=== PATIENT | female | born 1960 | race Caucasian/White ===

== ENCOUNTER 2020-06-19 17:57 | Outpatient (CLI) | payer OTHER ==
[2020-03-14 21:16] VITALS: BMI 27.5
[~2020-06-19 17:57] MED LIST: ALBUTEROL SULF8.5 GM INH; DEXAMETHASONE2 MG PO; LEVAQUIN750 MG PO; ZPAK PO
== END 2020-06-19 23:59 | disposition home or self-care (01) ==
LOC: D.MAMMO 17:57
PROVIDERS: ATTEND Family Medicine
DX: N63.21 Unspecified lump in the left breast, upper outer quadrant (principal); N63.24 Unspecified lump in the left breast, lower inner quadrant

== ENCOUNTER → 2020-07-01 15:39 | Outpatient (CLI) | payer OTHER ==
[2020-03-14 21:16] VITALS: BMI 27.5
== END | disposition home or self-care (01) ==
LOC: D.LAB 15:39 → D.US 16:00
PROVIDERS: ATTEND Family Medicine
DX: R92.8 Other abnormal and inconclusive findings on diagnostic imaging of breast (principal)

== ENCOUNTER → 2020-07-08 13:07 | Outpatient (CLI) | payer OTHER ==
[2020-03-14 21:16] VITALS: BMI 27.5
== END | disposition home or self-care (01) ==
LOC: D.US 13:00
PROVIDERS: ATTEND Family Medicine
DX: R92.8 Other abnormal and inconclusive findings on diagnostic imaging of breast (principal)

== ENCOUNTER → 2020-08-01 20:10 | Outpatient (CLI) | payer OTHER ==
[2020-03-14 21:16] VITALS: BMI 27.5
== END | disposition home or self-care (01) ==
LOC: D.MAMMO 08:00
PROVIDERS: ATTEND Surgery
DX: R92.8 Other abnormal and inconclusive findings on diagnostic imaging of breast (principal)

== ENCOUNTER 2020-08-08 05:32 | Day surgery (SDC) | payer OTHER ==
[~2020-08-08] VITALS: Ht 172.7 cm; Wt 85.3 kg
--- NOTE | ~2020-08-08 | OP ---
PATIENT NAME: LETTY CRUZ MEDICAL RECORD: [id number] :56 LOCATION:[id number] ADMISSION DATE: SURGEON: PABLO CHAVES MD DATE OF OPERATION: 08/08/2020 PREOPERATIVE DIAGNOSES: 1. Left breast cancer. 2. Left breast fibroadenomas. POSTOPERATIVE DIAGNOSES: 1. Left breast cancer. 2. Left breast fibroadenomas. PROCEDURE: Needle local left lumpectomy with sentinel lymph node biopsy. SURGEON: Pablo Chaves MD REPORT OF PROCEDURE: Preoperatively, the patient underwent needle localization of a mass in the left upper outer quadrant and also a lymphoscintigraphy which showed uptake in 2 lymph nodes in the left axilla. The patient was taken to the operating room and her left breast and axilla were prepped and draped in sterile fashion. A transverse incision was made on the left superior lateral breast and subcutaneous dissection was performed to the wire exit site. The wire was eviscerated through this wound and we could feel a palpable mass present in the subcutaneous breast tissue. A generous dissection was performed around this mass using electrocautery. The mass was completely excised including the wire. The mass extended all the way down to the fascia and this was dissected off of the fascia and the anterior pectoral fascia was excised with removal of this mass. With the mass completely excised, it was sent off to radiology and we could see that the clip was in place along with the mass. There was another clip present from her previous biopsy site, that was also in our specimen. The wound was inspected and any bleeding that was found was treated with electrocautery or with 3-0 silk ties. We then approached the patient's left axilla. A longitudinal incision was made on the anterior aspect of the axilla and the electrocautery was used to dissect through the subcutaneous tissues and fascia. We entered the axillary space and was able to find 2 lymph nodes, which had high readings of the radiotracer. The first had a reading of 1300 and the other had a reading of around 500. Once these 2 lymph nodes were removed with the use of medium clips and sharp dissection, then we inspected the axilla and saw no evidence of any further radiotracer uptake. Both of the wound beds were irrigated out with sterile water. The subcutaneous tissues were reapproximated with interrupted 3-0 Vicryl and the skin was closed with running subcutaneous 5-0 Monocryl. COMPLICATIONS: None. CONDITION: Stable. ANESTHESIA: General endotracheal and local. BLOOD LOSS: Minimal. TRANSINT:[id number] Voice Confirmation ID: [id number] DOCUMENT ID: [id number] OPERATIVE REPORT [id number] LETTY CRUZ CHRISTIAN MD CC: MELVIN RAY MD [id number] DICTATION DATE: 08/08/20 1219 GASKET FORMER: 08/08/20 1237 REG [place] [id number] [place] [id number]
[2020-08-08 05:52] LABS: BASOPHILS 1.5 % (0-2); EOSINOPHILS 7.5 % (0-7); HEMATOCRIT 44.2 % (36.0-48.0); HEMOGLOBIN 14.2 g/dL (12-16); IMMATURE GRANULOCYTES 0.2 % (0-5); LYMPHOCYTE ABS# 1.15 10x3/uL (1.18-3.74); MCH 28.4 pg (26.0-34.0); MCHC 32.1 g/dL (31.0-37.0); MCV 88.4 fL (80.0-100.0); MEAN PLATELET VOLUME 10.7 fL (7.4-10.4); MONOCYTES 11.1 % (2-11); NEUTROPHIL ABS# 3.02 10x3/uL (1.56-6.13); NEUTROPHILS 57.7 % (40-80); PLATELET COUNT 227 10x3/uL (130-400); RDW 12.9 % (11.5-14.5); WBC 5.2 10x3/uL (4.8-10.8)
[2020-08-08 06:08] LABS: APTT 28.5 SECONDS (22.8-39.4); CALC OSMOLALITY 286 mosm/kg (275-300); CALCIUM 9.3 mg/dL (8.5-10.1); CHLORIDE - SERUM 107 mmol/L (98-107); CREATININE - SERUM 0.7 mg/dL (0.6-1.3); GLUCOSE 117 mg/dL (74-106); POTASSIUM - SERUM 4.3 mmol/L (3.5-5.1); SODIUM 142 mmol/L (136-145); UREA NITROGEN 21 mg/dL (7-18); eGFR NON AFRICAN AMERICAN 90 mL/min (90-120)
[2020-08-08 06:32] LABS: INR 0.94 (0.85-1.17); PROTIME 11.6 SECONDS (11.6-15.0)
[2020-08-08 07:05] VITALS: BP 153/71; Ht 172.7 cm; Wt 85.3 kg
[2020-08-08] MEDS ORDERED: HYDROCODON-ACE1 EA10 PO (12:07)
--- NOTE | 2020-08-08 14:19 | NUR ---
1400 IV REMOVE AND INSTRUCTIONS GIVEN. IN ROOM.
== END 2020-08-08 14:10 | disposition home or self-care (01) ==
LOC: D.OPS 05:32 → D.NM 05:32 → D.OPS 14:10
PROVIDERS: Anesthesiology; ATTEND Surgery
DX: C50.912 Malignant neoplasm of unspecified site of left female breast (principal); D24.2 Benign neoplasm of left breast; R92.1 Mammographic calcification found on diagnostic imaging of breast